=== PATIENT | female | born 1965 | race African-American/Black ===

== ENCOUNTER 2017-04-14 20:36 | Observation (INO) | payer OTHER ==
[~2017-04-14] VITALS: Ht 160 cm; Wt 100.8 kg
[~2017-04-14 20:36] MED LIST: ALLERGY MEDICIN25 M2 PO; CELEXA10 MG PO; IBUPROFEN400 MG PO; LORAZEPAM0.5 MG PO; LORTAB 5-500 T1 EACH PO; METRONIDAZOLE500 MG PO; PAROXETINE HCL20 MG PO; QUETIAPINE FUMA50 MG PO; SEROQUEL12.5 MG PO; SERTRALINE HCL100 MG PO; SERTRALINE HCL25 MG PO; VICODIN 5-3001 EACH PO; ZOFRAN4 MG PO; ZOLPIDEM TARTRAT5 MG PO
[2017-04-14 21:03] LABS: HEMATOCRIT 38.1 % (36.0-46.0); MCH 30.4 PG (29.0-34.0); MCHC 33.9 G/DL (30.0-36.0); MCV 89.6 FL (83-99); MEAN PLAT.VOLUME 8.9 uM^3 (9.5-12.4); PLATELET COUNT 262 K/uL (156-360); RBC DIS.WIDTH-CV 11.9 % (11.8-14.6); RBC DIS.WIDTH-SD 38.1 % (39-53); RED BLOOD COUNT 4.25 M/uL (3.80-5.20)
[2017-04-14 21:13] LABS: CHLORIDE 107 mEq/L (99-109); POTASSIUM 4.2 mEq/L (3.7-5.4); SODIUM 141 mEq/L (136-147)
[2017-04-14 21:15] LABS: GLUCOSE 94 mg/dL (70-99)
[2017-04-14 21:16] LABS: ANION GAP 10 MEQ/L (2-14)
[2017-04-14 21:18] LABS: GFR ESTIMATE (CALCULATED) > 59 mL/min/
[2017-04-14 21:19] LABS: UREA NITROGEN (BUN) 15 mg/dL (9-23)
[2017-04-14 21:26] LABS: TROP-I INTERPRETATION NEGATIVE; TROPONIN-I < 0.01 ng/mL (0.0-0.30)
[2017-04-14] MEDS ORDERED: SEROQUEL100 MG PO (22:10)
[2017-04-14] MEDS ORDERED: ZOLPIDEM TARTRAT5 MG PO (22:11)
[2017-04-14] MEDS ORDERED: VENLAFAXINE H37.5 MG PO (22:11)
[2017-04-14] MEDS ORDERED: LORAZEPAM0.5 MG PO (22:11)
[2017-04-14] MEDS ORDERED: DICLOFENAC SODI50 MG PO (22:12)
[2017-04-14] MEDS ORDERED: FLEXERIL10 MG PO (22:12)
[2017-04-14] MEDS ORDERED: RANITIDINE HCL150 MG PO (22:12)
[2017-04-15 00:35] LABS: D-DIMER ELISA 0.48 mg/L FEU (< 0.57)
[2017-04-15 01:11] VITALS: BP 118/66
[2017-04-15 03:25] VITALS: BP 117/60
[2017-04-15 08:42] LABS: HEMATOCRIT 36.1 % (36.0-46.0); MCH 30.7 PG (29.0-34.0); MCHC 33.8 G/DL (30.0-36.0); MCV 90.9 FL (83-99); MEAN PLAT.VOLUME 9.1 uM^3 (9.5-12.4); PLATELET COUNT 249 K/uL (156-360); RBC DIS.WIDTH-CV 11.9 % (11.8-14.6); RBC DIS.WIDTH-SD 39.7 % (39-53); RED BLOOD COUNT 3.97 M/uL (3.80-5.20)
[2017-04-15 08:43] LABS: WHITE BLOOD COUNT 4.6 K/uL (4.1-10.2)
[2017-04-15 09:08] LABS: ALKALINE PHOSPHATASE 67 IU/L (3-129); ANION GAP 7 MEQ/L (2-14); CHLORIDE 104 MEQ/L (99-109); GFR ESTIMATE (CALCULATED) > 59 mL/min/; GLUCOSE 104 mg/dL (70-99); POTASSIUM 3.9 MEQ/L (3.7-5.4); SAMPLE HEMOLYSIS CHECK 0; SAMPLE ICTERIC CHECK 0; SAMPLE LIPEMIA CHECK 0; SODIUM 139 MEQ/L (136-147); TOTAL BILIRUBIN 0.7 MG/DL (0.0-1.0); UREA NITROGEN (BUN) 12 mg/dL (9-23)
[2017-04-15 09:20] LABS: TROP-I INTERPRETATION NEGATIVE; TROPONIN-I < 0.01 ng/mL (0.0-0.30)
[2017-04-15 09:56] VITALS: BP 123/83
[2017-04-15] MEDS ORDERED: ASPIR-LOW81 MG PO (10:45)
[2017-04-15 11:59] VITALS: BP 112/68
== END 2017-04-15 12:02 | disposition home or self-care (01) ==
LOC: EME 20:36 → EDOF 04-15 00:05 → 5WEST 04-15 00:51
PROVIDERS: Internal Medicine; Nurse Practitioner Family
DX: R07.89 Other chest pain (principal); R42 Dizziness and giddiness; R20.0 Anesthesia of skin; K21.9 Gastro-esophageal reflux disease without esophagitis; F41.9 Anxiety disorder, unspecified; F31.9 Bipolar disorder, unspecified; G43.909 Migraine, unspecified, not intractable, without status migrainosus
CPT/HCPCS: 71020; 80048; 80053; 84484; 85027; 85379; 93005; 99281; 99285; G0378; J1644

== ENCOUNTER 2017-05-05 13:32 | Emergency (ER) | payer OTHER ==
[~2017-05-05 13:32] MED LIST changes: +ASPIR-LOW81 MG PO; +DICLOFENAC SODI50 MG PO; +FLEXERIL10 MG PO; +RANITIDINE HCL150 MG PO; +SEROQUEL100 MG PO; +VENLAFAXINE H37.5 MG PO
== END 2017-05-05 14:01 | disposition left against medical advice (07) ==
LOC: EME 13:32
DX: Z00.8 Encounter for other general examination (principal); Z53.21 Procedure and treatment not carried out due to patient leaving prior to being seen by health care provider

== ENCOUNTER 2018-01-26 19:34 | Emergency (ER) | payer OTHER ==
[~2018-01-26] VITALS: Ht 160 cm; Wt 107.7 kg
[2018-01-26 20:03] LABS: HEMATOCRIT 33.3 % (36.0-46.0); HEMOGLOBIN 11.2 G/DL (11.9-15.5); MCH 31.4 PG (29.0-34.0); MCHC 33.6 G/DL (30.0-36.0); MCV 93.3 FL (83-99); PLATELET COUNT 278 K/uL (156-360); RBC DIS.WIDTH-SD 41.1 % (39-53); RED BLOOD COUNT 3.57 M/uL (3.80-5.20); WHITE BLOOD COUNT 6.6 K/uL (4.1-10.2)
[2018-01-26 20:11] LABS: CHLORIDE 104 mEq/L (99-109); POTASSIUM 3.9 mEq/L (3.7-5.4); SODIUM 140 mEq/L (136-147)
[2018-01-26 20:13] LABS: GLUCOSE 119 mg/dL (70-99)
[2018-01-26 20:17] LABS: CREATININE 0.8 mg/dL (0.6-1.3); GFR ESTIMATE (CALCULATED) > 59 mL/min/
[2018-01-26 20:18] LABS: UREA NITROGEN (BUN) 8 mg/dL (9-23)
[2018-01-26 20:26] LABS: TROP-I INTERPRETATION NEGATIVE; TROPONIN-I < 0.01 ng/mL (0.0-0.30)
[2018-01-27 00:02] LABS: TROP-I INTERPRETATION NEGATIVE; TROPONIN-I < 0.01 ng/mL (0.0-0.30)
[2018-01-27 01:15] VITALS: BP 137/89
== END 2018-01-27 01:20 | disposition home or self-care (01) ==
LOC: EME 19:34
PROVIDERS: Physician Assistant
DX: R07.89 Other chest pain (principal); Z90.11 Acquired absence of right breast and nipple; Z98.890 Other specified postprocedural states; J98.11 Atelectasis; N64.89 Other specified disorders of breast; F32.9 Major depressive disorder, single episode, unspecified; Z85.3 Personal history of malignant neoplasm of breast; Z90.711 Acquired absence of uterus with remaining cervical stump
CPT/HCPCS: 71046; 71275; 80048; 84484; 85027; 85379; 93005; 99281; 99285; J2270; J7030

== ENCOUNTER 2018-02-07 23:07 | Emergency (ER) | payer OTHER ==
[~2018-02-07] VITALS: Ht 160 cm; Wt 106.5 kg
[2018-02-08 01:02] LABS: BASOPHIL (%) 0.5 % (0-1); BASOPHIL COUNT 0.1 K/uL (0-0.1); EOSINOPHIL (%) 12.6 % (0-5); EOSINOPHIL COUNT 1.2 K/uL (0-0.3); HEMATOCRIT 34.4 % (36.0-46.0); HEMOGLOBIN 11.6 G/DL (11.9-15.5); IMMATURE GRANULOCYTE (%) 0.3 % (0.0-0.7); LYMPHOCYTE (%) 28.4 % (15-42); LYMPHOCYTE COUNT 2.6 K/uL (1.0-2.8); MCH 31.5 PG (29.0-34.0); MCHC 33.7 G/DL (30.0-36.0); MCV 93.5 FL (83-99); MONOCYTE COUNT 0.6 K/uL (0-0.8); NEUTROPHIL (%) 52.2 % (45-76); NEUTROPHIL COUNT 4.8 K/uL (1.8-6.4); RBC DIS.WIDTH-CV 12.6 % (11.8-14.6); RBC DIS.WIDTH-SD 43.2 % (39-53); RED BLOOD COUNT 3.68 M/uL (3.80-5.20); WHITE BLOOD COUNT 9.2 K/uL (4.1-10.2)
[2018-02-08 01:10] LABS: PLATELET COUNT 379 K/uL (156-360)
[2018-02-08 01:13] LABS: CHLORIDE 106 mEq/L (99-109); SODIUM 139 mEq/L (136-147)
[2018-02-08 01:14] LABS: GLUCOSE 108 mg/dL (70-99)
[2018-02-08 01:18] LABS: CREATININE 0.8 mg/dL (0.6-1.3); GFR ESTIMATE (CALCULATED) > 59 mL/min/
[2018-02-08 01:19] LABS: UREA NITROGEN (BUN) 16 mg/dL (9-23)
[2018-02-08] MEDS ORDERED: PERCOCET 5/31 TABLET PO (02:51)
[2018-02-08] MEDS ORDERED: KEFLEX500 MG PO (02:51)
[2018-02-08 03:18] VITALS: BP 138/80
== END 2018-02-08 03:19 | disposition home or self-care (01) ==
LOC: EME 23:07
PROVIDERS: Emergency Medicine
DX: G89.18 Other acute postprocedural pain (principal); M96.842 Postprocedural seroma of a musculoskeletal structure following a musculoskeletal system procedure; Z90.13 Acquired absence of bilateral breasts and nipples; Z85.3 Personal history of malignant neoplasm of breast; Z98.890 Other specified postprocedural states; F32.9 Major depressive disorder, single episode, unspecified; F31.9 Bipolar disorder, unspecified; Z90.711 Acquired absence of uterus with remaining cervical stump
CPT/HCPCS: 80048; 85025; 99281; 99285

== ENCOUNTER 2018-05-18 12:56 | Emergency (ER) | payer OTHER ==
[~2018-05-18] VITALS: Ht 160 cm; Wt 107.8 kg
[~2018-05-18 12:56] MED LIST changes: +KEFLEX500 MG PO; +PERCOCET 5/31 TABLET PO
[2018-05-18 14:12] LABS: HEMATOCRIT 37.3 % (36.0-46.0); HEMOGLOBIN 12.7 G/DL (11.9-15.5); PLATELET COUNT 237 K/uL (156-360); RBC DIS.WIDTH-CV 12.3 % (11.8-14.6); RBC DIS.WIDTH-SD 40.4 % (39-53); WHITE BLOOD COUNT 5.9 K/uL (4.1-10.2)
[2018-05-18 14:20] LABS: CHLORIDE 108 mEq/L (99-109); POTASSIUM 4.1 mEq/L (3.7-5.4); SODIUM 141 mEq/L (136-147)
[2018-05-18 14:21] LABS: GLUCOSE 91 mg/dL (70-99)
[2018-05-18 14:25] LABS: CREATININE 0.8 mg/dL (0.6-1.3); GFR ESTIMATE (CALCULATED) > 59 mL/min/
[2018-05-18 14:26] LABS: UREA NITROGEN (BUN) 15 mg/dL (9-23)
[2018-05-18 14:33] LABS: TROP-I INTERPRETATION NEGATIVE; TROPONIN-I 0.01 ng/mL (0.0-0.30)
[2018-05-18 16:12] VITALS: BP 130/76
== END 2018-05-18 16:30 | disposition home or self-care (01) ==
LOC: EME 12:56
PROVIDERS: Family Medicine
DX: R07.9 Chest pain, unspecified (principal); R61 Generalized hyperhidrosis; R06.02 Shortness of breath; Z85.3 Personal history of malignant neoplasm of breast; Z90.13 Acquired absence of bilateral breasts and nipples; Z90.711 Acquired absence of uterus with remaining cervical stump; Z82.49 Family history of ischemic heart disease and other diseases of the circulatory system
CPT/HCPCS: 71046; 80048; 84484; 85027; 85379; 93005; 99281; 99285